=== PATIENT | female | born 1985 | race Caucasian/White ===

== ENCOUNTER → 2016-07-19 | Outpatient (CLI) | payer OTHER | LOC: BMCIMAGING 19:05 | PROVIDERS: ATTEND Family Medicine | DX: M79.672 Pain in left foot (principal) ==

== ENCOUNTER → 2016-07-19 | Outpatient (CLI) | payer OTHER | LOC: FIMAGING 17:15 | PROVIDERS: ATTEND Emergency Medicine | DX: M79.672 Pain in left foot (principal); M79.89 Other specified soft tissue disorders ==